=== PATIENT | male | born 1935 | race Two or more races ===

== ENCOUNTER 2016-05-23 08:30 | Emergency (ER) | payer OTHER ==
[~2016-05-23] VITALS: Ht 170.2 cm; Wt 75.8 kg
[2016-05-23 08:39] VITALS: BP 143/37
== END 2016-05-23 09:16 | disposition home or self-care (01) ==
LOC: ER 08:34
DX: N40.0 Benign prostatic hyperplasia without lower urinary tract symptoms (principal); I10 Essential (primary) hypertension; Z76.0 Encounter for issue of repeat prescription

== ENCOUNTER 2017-12-15 12:40 | Emergency (ER) | payer MEDICARE, MEDICAID ==
[~2017-12-15] VITALS: Ht 167.6 cm; Wt 73.9 kg
[2017-12-15 12:59] VITALS: BP 142/45
== END 2017-12-15 13:49 | disposition home or self-care (01) ==
LOC: ER 12:40
DX: I10 Essential (primary) hypertension (principal); Z76.0 Encounter for issue of repeat prescription